=== PATIENT | female | born 1990 | race Caucasian/White ===

== ENCOUNTER 2020-10-09 18:11 | Inpatient (IN) | payer BC, OTHER ==
[~2020-10-09] VITALS: Ht 170.2 cm; Wt 72.6 kg
[~2020-10-09 18:11] MED LIST: HUMALOG100 UNIT/1 SC; HUMULIN N100 UNIT/1 SC; SYNTHROID112 MCG PO
[2020-10-09 20:07] LABS: HEMOGLOBIN 13.2 gm/dl (12.3-15.3); RED BLOOD COUNT 4.39 M/UL (4.00-5.10); WHITE BLOOD COUNT 12.2 K/UL (4.5-11.0)
[2020-10-09 20:29] LABS: BUN/CREATININE RATIO 13 (0-10)
[2020-10-10] MEDS ORDERED: PRENATAL VITAM1 EAC3 PO (15:01)
[2020-10-10 17:28] LABS: RED BLOOD COUNT 4.33 M/UL (4.00-5.10); WHITE BLOOD COUNT 11.6 K/UL (4.5-11.0)
[2020-10-10 18:02] LABS: BUN/CREATININE RATIO 9 (0-10)
[2020-10-11 05:29] LABS: HEMOGLOBIN 11.8 gm/dl (12.3-15.3); RED BLOOD COUNT 3.99 M/UL (4.00-5.10); WHITE BLOOD COUNT 8.9 K/UL (4.5-11.0)
[2020-10-11 05:55] LABS: BUN/CREATININE RATIO 9 (0-10)
[2020-10-12] MEDS ORDERED: BACTRIM DS TAB1 EACH PO (17:51)
== END 2020-10-12 18:45 | disposition home or self-care (01) | DRG 872 ==
LOC: ER1 18:11 → CDU 23:54 → MED SURG 4 23:54 → CDU 23:54 → MED SURG 4 10-10 19:54
PROVIDERS: Internal Medicine; Physician Assistant; ADMIT Internal Medicine
DX: A41.9 Sepsis, unspecified organism (principal); L03.317 Cellulitis of buttock; E10.9 Type 1 diabetes mellitus without complications; D72.829 Elevated white blood cell count, unspecified; E03.9 Hypothyroidism, unspecified; Z79.4 Long term (current) use of insulin; Z20.828 Contact with and (suspected) exposure to other viral communicable diseases
CPT/HCPCS: 36415; 72193; 80048; 80053; 80202; 82962; 83605; 84703; 85025; 87040; 93005; 96365; 96366; 96367; 96368; 96372; 96375; 96376; 99285; G0378; J1650; J2185; J2543; J3370; J7030; J7070; Q9967; U0002